=== PATIENT | female | born 1945 ===

== ENCOUNTER 2022-03-18 17:59 | Emergency (ER) | payer SELFPAY ==
--- NOTE | 2022-03-18 21:26 | XRay Report ---
NECK SOFT TISSUE 2 VIEW(S) INDICATION / CLINICAL INFORMATION: plump sedd stuck in her throat COMPARISON: None available. FINDINGS: EPIGLOTTIS: No significant abnormality. RETROPHARYNGEAL SOFT TISSUES: No significant abnormality. AIRWAY: No significant abnormality. RADIOPAQUE FOREIGN BODY: No radiopaque foreign body is identified. SKELETAL SYSTEM: Advanced cervical spondylosis with disc degenerative changes greatest at C4-C7. No a cute osseous findings. ADDITIONAL FINDINGS: None. IMPRESSION: No acute findings. No radiopaque foreign body identified. Signer Name: Juwan Booker MD Signed: 03/18/2022 9:21 PM Workstation Name: [id number]
[2022-03-19] MEDS ORDERED: GLUCAGON (HUMAN RECOMBINANT) 1 MG/ML INJ IV ONE (04:35)
--- NOTE | 2022-03-19 05:58 | Emergency Department Report ---
ED General Adult HPI - General Chief complaint: Medical Clearance Stated complaint: SEED STUCK IN THROAT PUI?: No Time Seen by Provider: 03/19/22 05:55 Source: patient Mode of arrival: Ambulatory Limitations: No Limitations - History of Present Illness Initial comments: Pt came in said she swallowed a plump seed and feels like it still stuck in her throat -: Sudden, hour(s) Location: neck Radiation: non-radiation Improves with: none Worsens with: none Associated Symptoms: denies: denies other symptoms, confusion, chest pain - Related Data Allergies Allergy/AdvReac Type Severity Reaction Status Date / Time No Known Allergies Allergy Verified 03/18/22 20:01 ED Review of Systems ROS: Stated complaint: SEED STUCK IN THROAT Other details as noted in HPI Constitutional: denies: chills, fever Eyes: denies: eye pain, eye discharge, vision change ENT: denies: ear pain, throat pain Respiratory: denies: cough, shortness of breath, wheezing Cardiovascular: denies: chest pain, palpitations Endocrine: no symptoms reported Gastrointestinal: denies: abdominal pain, nausea, diarrhea Genitourinary: denies: urgency, dysuria, discharge Musculoskeletal: denies: back pain, joint swelling, arthralgia Skin: denies: rash, lesions Neurological: denies: headache, weakness, paresthesias Psychiatric: denies: anxiety, depression Hematological/Lymphatic: denies: easy bleeding, easy bruising ED Past Medical Hx - Past Medical History Previous Medical History?: Yes Hx Hypertension: Yes - Surgical History Past Surgical History?: No - Social History Smoking Status: Never Smoker Substance Use Type: None ED Physical Exam - General Limitations: No Limitations General appearance: alert, in no apparent distress - Head Head exam: Present: atraumatic, normocephalic - Eye Eye exam: Present: normal appearance - ENT ENT exam: Present: mucous membranes moist - Neck Neck exam: Present: normal inspection - Respiratory Respiratory exam: Present: normal lung sounds bilaterally. Absent: respiratory distress - Cardiovascular Cardiovascular Exam: Present: regular rate, normal rhythm. Absent: systolic murmur, diastolic murmur, rubs, gallop - GI/Abdominal GI/Abdominal exam: Present: soft, normal bowel sounds - Extremities Exam Extremities exam: Present: normal inspection - Back Exam Back exam: Present: normal inspection - Neurological Exam Neurological exam: Present: alert, oriented X3 - Psychiatric Psychiatric exam: Present: normal affect, normal mood - Skin Skin exam: Present: warm, dry, intact, normal color. Absent: rash ED Course Vital Signs 03/18/22 19:57 Temperature 98.1 F Pulse Rate 74 Respiratory 18 Rate Blood Pressure 177/61 [Left] O2 Sat by Pulse 99 Oximetry ED Medical Decision Making - Radiology Data Radiology results: report reviewed, image reviewed - Medical Decision Making glucagon given feels better able to tolerate solid food, Critical care attestation.: If time is entered above; I have spent that time in minutes in the direct care of this critically ill patient, excluding procedure time. ED Disposition Clinical Impression: Dysphagia, Foreign body in esophagus Disposition: HOME / SELF CARE / HOMELESS Is pt being admited?: No Does the pt Need Aspirin: No Condition: Stable Instructions: Swallowed Foreign Body, Adult
[2022-03-19 06:13] VITALS: BP 194/82
== END 2022-03-19 06:16 | disposition home or self-care (01) ==
LOC: ED 17:59
DX: T18.128A Food in esophagus causing other injury, initial encounter (principal); I10 Essential (primary) hypertension; X58.XXXA Exposure to other specified factors, initial encounter; Y93.89 Activity, other specified; Y92.89 Other specified places as the place of occurrence of the external cause; Y99.8 Other external cause status
CPT/HCPCS: 70360; 96374; 99283; J1610